=== PATIENT | female | born 1990 | race Caucasian/White ===

== ENCOUNTER 2025-10-05 14:28 | Emergency (ER) | payer OTHER ==
[~2025-10-05] VITALS: Ht 157.5 cm; Wt 64.0 kg
[2025-10-05 14:32] VITALS: BP 145/97; PULSE 76; RESP 16; TEMP 97.6; O2SAT 100
[2025-10-05] MEDS ORDERED: AMOX875T2 PO (14:44)
[2025-10-05] MEDS ORDERED: IBUP-1986 PO (14:44)
--- NOTE | 2025-10-05 14:44 | Physician Documentation ---
History of Present Illness ~ Chief Complaint: Ear Pain Stated Complaint: L EAR PAIN Time Seen by MD: 14:34 HPI This is a 34-year-old female who presents with two days of progressively worsening right ear pain without fever. Patient reports no other acute symptoms or concerns. Medication Reconciliation Allergies: Coded Allergies: No Known Allergies (Unverified , 10/05/25) Scheduled Amoxicillin (Amoxicillin), 1 TAB PO Q12H Ibuprofen (Ibuprofen), 1 TAB PO Q8H Review of Systems ROS As stated above in the HPI, otherwise all systems are reviewed and negative. Physical Exam Vital Signs: Temperature: 97.6, Source: Temporal, Heart Rate: 76, Respiratory Rate: 16, BP: 145/97, Pulse Oximetry: 100, Weight: 64.000 Oxygen Flow Rate: 0 Physical Exam VITALS: Reviewed and as above. GENERAL: Alert, nontoxic appearing, no apparent distress. HEENT: Right auditory canal clear, right TM bulging, cloudy, erythematous, left auditory canal clear, left TM clear, nonbulging, normal exam. Bilateral no postauricular swelling, erythema, or tenderness. RESPIRATORY: No increased work of breathing, no respiratory distress, speaking in full clear sentences Progress Results/Orders Results/Orders Completed Orders - NILAY HERNANDEZ [facility] Ketorolac Trometh 15mg/Ml Vial (Toradol (10/05/25 14:40) Amoxicillin Capsule (Trimox Capsule) (10/05/25 14:45) Medications Received in ER Medications (Trade) Dose Ordered Sig/Estevan Route PRN Reason Start Time Stop Time Status Last Admin Dose Admin (Toradol injection) 15 mg ONCE ONCE IM 10/05/25 14:40 10/05/25 14:41 DC 10/05/25 14:54 15 MG (Trimox capsule) 750 mg ONCE ONCE PO 10/05/25 14:45 10/05/25 14:46 DC 10/05/25 14:52 750 MG Vital Signs 10/05/25 14:32 Temp 97.6 Pulse 76 Resp 16 B/P (MAP) 145/97 Pulse Ox 100 O2 Flow Rate 0 Medical Decision Making Additional information obtaine: N/A Findings This 34-year-old female presented with two days of progressively worsening right ear pain without fever, physical exam demonstrated erythematous bulging right TM otherwise benign physical exam, reassuring with no postauricular erythema swelling, or tenderness to suggest mastoiditis. Patient is otherwise well- appearing and appropriate for outpatient follow up. Ear Diff. Dx: Considerations: Include: Abrasion, Cerumen impaction, Foreign body, Otitis externa, Otitis media, Perforation, Referred pain-dental, Referred pain-pharyngitis, Referred pain-sinusitis, Referred pain-TMJ syn., Tympanic Membrane Injury Eye Diff. Dx: Considerations: Unlikely: Chalazoin, Conjuctivits-allergic, Conjuctivitis-bacterial, Conjuctivits-chlamydial, Conjuctivitis-viral, Corneal abrasion, Corneal laceration, Corneal ulceration, Foreign body-conjuctiva, Foreign body-corneal, Foreign body-intraocular, Foreign body-lid, Glaucoma, Globe rupture, Hordeolum, Iritis, Orbital cellulitis, Periobital cellulitis, Retinal artery occulsion, Retinal vein occlusion, Rust ring, Subconjunctival hem, Ultraviolet keratitis, Uveitis, Vitreous hemorrhage, Other Nose Diff. Dx: Considerations: Unlikely: Abrasion, Anterior nasal bleed, Avulsion, Contusion, Coagulopathy, Fracture-nasal bone, Fracture-septum, Hyp ertension, Laceration, Other, Posterior nasal bleed, Retained foreign body, Septal hematoma Tooth Diff. Dx: Considerations: Unlikely: Alveolar fracture, Aveolar osteitis, ANUG, Facial cellulitis, Periapical abscess, Periodontal abscess, Post- extraction bleeding, Pulpitis, Trigeminal neuralgia, Tooth-avulsion, Tooth- eruption, Tooth-fracture, Tooth-subluxation, Other Throat Diff Dx: Considerations: Unlikely: AIDS, Epiglottitis, Esophageal candidiasis, Hand foot mouth disease, Herpangina, Herpetic stomatitis, Herpes simplex, Infection mononucleosis, Immunodeficiency, Rasta's angina, Peritons illar abscess, Peritonsillar cellulitis, Pharyngitis-diphtheria, Pharyngitis- strepococcal, Pharyngitis-viral, Thrush, URI, Other Departure Time of Disposition: 14:41 Disposition: 01 HOME / SELF CARE / HOMELESS Impression: Primary Impression: Otitis media Qualified Codes: H66.90 - Otitis media, unspecified, unspecified ear Condition: Improved Discharge Instructions: Otitis Media, Adult Additional Instructions: Please take antibiotics as prescribed. Please follow up with your primary care provider in the next few days. Please use the prescribed ibuprofen as needed f or pain, you may also use [id number] Tylenol as directed by [id number] packaging for breakthrough pain. Please return to the emergency department for any new or worsening concerning symptoms including but not limited to if you develop a fever over 100.4 that does not lower with ibuprofen or Tylenol. Referrals: NO PRIMARY CARE PROVIDER (PCP) Prescriptions Amoxicillin (Amoxicillin) 875 Mg Tablet 1 TAB PO Q12H for 7 Days, #14 TAB Prov: NILAY HERNANDEZ 10/05/25 Ibuprofen (Ibuprofen) 800 Mg Tablet 1 TAB PO Q8H for pain for 10 Days, #30 TAB 0 Refills Prov: NILAY HERNANDEZP 10/05/25 Education Educated: Patient Educated regarding: diagnosis, treatment, prognosis, need for follow up Signature Scribe Signature: No scribe Attestation: The note accurately reflects work and decisions made by me.GARRETT Ames 10/05/25 20:46 NILAY HERNANDEZ Oct 05, 2025 14:44
[2025-10-05] MEDS: ketorolac trometh 15mg/ml vial 15 MG/ML ML IM ONE (14:54)
== END 2025-10-05 15:05 | disposition home or self-care (01) ==
LOC: ER 14:29
DX: H66.91 Otitis media, unspecified, right ear (principal); Z79.899 Other long term (current) drug therapy
CPT/HCPCS: 96372; 99283; J1885